=== PATIENT | female | born 1950 | race Two or more races ===

== ENCOUNTER 2018-03-15 20:05 | Emergency (ER) | payer OTHER ==
[~2018-03-15] VITALS: Ht 160 cm; Wt 81.6 kg
[2018-03-15] MEDS ORDERED: HYZAAR 50-12.51 EACH (20:19)
[2018-03-15] MEDS ORDERED: TOPROL XL25 M1 (20:20)
[2018-03-15] MEDS ORDERED: CRESTOR5 MG (20:20)
[2018-03-15] MEDS ORDERED: FOLIC ACID0.4 MG (20:21)
[2018-03-15] MEDS ORDERED: ASPIRIN81 MG (20:21)
== END 2018-03-15 20:57 | disposition home or self-care (01) ==
LOC: ER 20:05
DX: R51 Headache (principal)

== ENCOUNTER 2018-06-13 21:02 | Emergency (ER) | payer OTHER ==
[~2018-06-13] VITALS: Ht 160 cm; Wt 77.1 kg
[~2018-06-13 21:02] MED LIST: ASPIRIN81 MG; CRESTOR5 MG; FOLIC ACID0.4 MG; HYZAAR 50-12.51 EACH; TOPROL XL25 M1
[2018-06-13] MEDS ORDERED: CLEOCIN HCL300 MG PO (21:40)
== END 2018-06-13 21:46 | disposition home or self-care (01) ==
LOC: ER 21:02
DX: L03.116 Cellulitis of left lower limb (principal)